=== PATIENT | female | born 1980 | race Two or more races ===

== ENCOUNTER → 2017-05-16 | Outpatient (CLI) | payer BC | END | disposition home or self-care (01) | LOC: LAB 15:07 | PROVIDERS: ATTEND Obstetrics & Gynecology | DX: Z34.80 Encounter for supervision of other normal pregnancy, unspecified trimester (principal); Z3A.00 Weeks of gestation of pregnancy not specified | CPT/HCPCS: 87086 ==

== ENCOUNTER → 2017-06-13 | Outpatient (CLI) | payer BC ==
[2017-06-13 14:53] LABS: Basophils # (auto) 0.1 uL; Eosinophils # (auto) 0.2 uL; Eosinophils % (auto) 1.3 % (0.0-7.0)
[2017-06-13 14:56] LABS: Basophils % (auto) 0.6 % (0.0-2.0); Hematocrit 43.5 % (36.0-46.0); Hemoglobin 14.4 g/dL (12.2-16.2); Lymphocytes # (auto) 3.5 uL; Lymphocytes % (auto) 25.5 % (10.0-50.0); Mean Corpuscular Hemoglobin 29.3 pg (28.0-32.0); Mean Corpuscular Hgb Conc. 33.1 g/dL (32.0-36.0); Mean Corpuscular Volume 88.4 fL (80.0-100.0); Monocytes # (auto) 1.1 uL; Monocytes % (auto) 7.9 % (0.0-12.0); Neutrophils # (auto) 8.8 uL; Neutrophils % (auto) 64.7 % (37.0-80.0); Nucleated Red Blood Cells % 0.1 %; Platelet Count (auto) 258 10^3/uL (140-450); Red Blood Cells 4.92 10^6/uL (4.0-5.20); Red Cell Distribution Width 13.7 % (11.8-14.3); White Blood Cell 13.6 10^3/uL (4.4-10.8)
[2017-06-13 15:43] LABS: Alcohol, Urine < 3.0 mg/dL (0-5); Amphetamine Screen, Urine NEGATIVE (NEGATIVE); Barbiturate Scree,Urine NEGATIVE (NEGATIVE); Benzodiazephine Screen, Urine NEGATIVE (NEGATIVE); Cannabinoid Screen, Urine NEGATIVE (NEGATIVE); Cocaine Screen, Urine NEGATIVE (NEGATIVE); Opiate Scree,Urine NEGATIVE (NEGATIVE); Phencyclidine Screen, Urine NEGATIVE (NEGATIVE)
== END | disposition home or self-care (01) ==
LOC: LAB 14:22
PROVIDERS: ATTEND Obstetrics & Gynecology
DX: Z34.80 Encounter for supervision of other normal pregnancy, unspecified trimester (principal); Z3A.00 Weeks of gestation of pregnancy not specified
CPT/HCPCS: 36415; 80307; 83036; 85025; 86703; 86850; 86900; 86901; 87086; 87340; 87591

== ENCOUNTER → 2017-07-25 | Outpatient (CLI) | payer BC ==
[2017-07-25 15:39] LABS: Basophils # (auto) 0 uL; Basophils % (auto) 0.3 % (0.0-2.0); Eosinophils # (auto) 0.1 uL; Eosinophils % (auto) 0.8 % (0.0-7.0); Hematocrit 41.3 % (36.0-46.0); Hemoglobin 13.5 g/dL (12.2-16.2); Lymphocytes # (auto) 3.4 uL; Lymphocytes % (auto) 23.9 % (10.0-50.0); Mean Corpuscular Hemoglobin 28.6 pg (28.0-32.0); Mean Corpuscular Hgb Conc. 32.8 g/dL (32.0-36.0); Mean Corpuscular Volume 87.3 fL (80.0-100.0); Monocytes # (auto) 1.2 uL; Monocytes % (auto) 8.5 % (0.0-12.0); Neutrophils # (auto) 9.3 uL; Neutrophils % (auto) 66.5 % (37.0-80.0); Platelet Count (auto) 250 10^3/uL (140-450); Red Blood Cells 4.73 10^6/uL (4.0-5.20); Red Cell Distribution Width 13.6 % (11.8-14.3)
[2017-07-25 17:08] LABS: Albumin 3.3 g/dL (3.4-5.0); BUN/Creatinine Ratio 14.8; Bilirubin, Total 0.2 mg/dL (0.2-1.0); Calcium 9.3 mg/dL (8.5-10.1); Potassium 3.4 mmol/L (3.5-5.1); Total Protein 8.1 g/dL (6.4-8.2); Uric Acid 2.7 mg/dL (2.6-6.0)
== END | disposition home or self-care (01) ==
LOC: LAB 14:56
PROVIDERS: ATTEND Obstetrics & Gynecology
DX: O10.913 Unspecified pre-existing hypertension complicating pregnancy, third trimester (principal); Z3A.00 Weeks of gestation of pregnancy not specified
CPT/HCPCS: 36415; 80053; 84550; 85025; 86762

== ENCOUNTER → 2017-07-29 | Outpatient (CLI) | payer BC ==
[2017-07-29 09:58] LABS: Protein, Urine < 5.0 mg/dL (0.0-11.9)
[2017-07-29 10:55] LABS: 24 Hr. Total Protein, Urine 84.99983 mg/24 Hr (<149.1); Urine Total Volume, 24 Hours 1700 mL
== END | disposition home or self-care (01) ==
LOC: LAB 09:13
PROVIDERS: ATTEND Obstetrics & Gynecology
DX: O10.913 Unspecified pre-existing hypertension complicating pregnancy, third trimester (principal); Z3A.00 Weeks of gestation of pregnancy not specified
CPT/HCPCS: 84156

== ENCOUNTER 2024-08-14 06:49 | Day surgery (SDC) | payer OTHER ==
[2024-08-11 10:12] LABS: Urine Bacteria FEW /hpf (None Seen); Urine Blood TRACE /uL (Negative); Urine Budding Yeast OCCASIONAL /hpf (None Seen); Urine Clarity Turbid (Clear); Urine Color Yellow (Yellow); Urine Mucus FEW (None Seen); Urine Protein, UAD 1+ (Negative); Urine Specific Gravity 1.025 (1.001-1.035); Urine Squamous Epithelial Cell FEW /hpf (<5); Urine Urobilinogen Normal (Negative); Urine WBC 118 /HPF (0-5); Urine pH 5.5 (5.0-9.0)
[2024-08-11 10:14] LABS: Partial Thromboplastin Time 26.2 SEC (24.5-34.5); Prothrombin Time 10.6 sec (9.3-11.8)
[2024-08-11 10:15] LABS: Basophils # (auto) 0.1 10 ^3/uL (0-0.2); Basophils % (auto) 0.7 % (0.0-2.0); Eosinophils # (auto) 0.1 10 ^3/uL (0-0.8); Hematocrit 34.9 % (36.0-46.0); Hemoglobin 10.6 g/dL (12.2-16.2); Lymphocytes % (auto) 28.5 % (10.0-50.0); Mean Corpuscular Hemoglobin 18.4 pg (28.0-32.0); Mean Corpuscular Hgb Conc. 30.2 g/dL (32.0-36.0); Monocytes % (auto) 9.1 % (0.0-12.0); Neutrophils # (auto) 6.4 10 ^3/uL (1.6-8.6); Neutrophils % (auto) 60.7 % (37.0-80.0); Nucleated Red Blood Cells % 0.1 %; Platelet Count (auto) 274 10^3/uL (140-450); Red Blood Cells 5.73 10^6/uL (4.0-5.20); White Blood Cell 10.5 10^3/uL (4.4-10.8)
[2024-08-11 10:19] LABS: Red Cell Distribution Width 21.3 % (11.8-14.3)
[2024-08-11 10:30] LABS: Alanine Aminotransferase 13 U/L (7-40); Albumin 5.1 g/dL (3.2-4.8); Alkaline Phosphatase 110 U/L (46-116); Anion Gap 10 (5-15); Aspartate Aminotransferase 16 U/L (<34); BUN/Creatinine Ratio 11.8 (10.0-20.0); Bilirubin, Total 0.5 mg/dL (0.2-1.0); Blood Urea Nitrogen 9 mg/dL (9-23); Calcium 9.9 mg/dL (8.7-10.4); Carbon Dioxide 22 mmol/L (20-31); Chloride 108 mmol/L (98-107); Glucose 108 mg/dL (74-106); Potassium 3.7 mmol/L (3.5-5.1); Sodium 140 mmol/L (136-145); Total Protein 8.3 g/dL (5.7-8.2)
--- NOTE | 2024-08-11 13:34 | DVHHP ---
ADMIT DATE: 08/11/2024 CHIEF COMPLAINT: Abnormal uterine bleeding, menorrhagia. HISTORY OF PRESENT ILLNESS: The patient is a 44-year-old 5, para 5, admitted for D and C, hysteroscopy, endometrial ablation, removal of prolapsing myoma. The patient has a large 5 cm myoma prolapsing through the cervix. She has been having abnormal bleeding. An ultrasound was done in the office, which revealed 10.7 x 8.8 x 5.7 cm uterus. There was a fundal myoma. Cervical myoma appears to be 3.5 cm. The patient is also undergoing endometrial ablation. PAST MEDICAL HISTORY: None. PAST SURGICAL HISTORY: Cholecystectomy. SOCIAL HISTORY: None. OBSTETRIC AND GYNECOLOGIC HISTORY: Five normal vaginal deliveries. REVIEW OF SYSTEMS: Consistent with HPI. PHYSICAL EXAMINATION: VITAL SIGNS: Stable, afebrile. HEENT: Within normal limits. CARDIOVASCULAR: Regular rate and rhythm. LUNGS: Clear to auscultation. BREASTS: Symmetrical. No masses. ABDOMEN: Soft, nontender. PELVIC: External genitalia within normal limits. Vagina normal. Cervix is dilated. A 5 cm myoma noted. Uterus 11 weeks size. Adnexa nonpalpable. EXTREMITIES: No clubbing, cyanosis or edema. IMPRESSION: * Abnormal uterine bleeding, menorrhagia. * Prolapsing myoma. PLAN: D and C, hysteroscopy. Informed consent obtained. Risks and complications of surgery including infection, bleeding, hematoma formation, injury to bowel, bladder, surrounding organ, possibility of DVT, pulmonary embolus, risk of anesthesia discussed with the patient. Risks of this procedure discussed with the patient. Options reviewed. All questions answered. The patient fully understands. She wishes to proceed with planned procedure. DO PASCUAL Joshua TID: [id number] RECEIPT: [id number]
[~2024-08-14] VITALS: Ht 152.4 cm; Wt 80.7 kg
[~2024-08-14 06:49] MED LIST: IBUP100S11 GT; NIC21P TOP
[2024-08-14] MEDS ORDERED: IBUP-1456 PO (07:49)
[2024-08-14] MEDS ORDERED: HYDR-4072 PO (07:49)
[2024-08-14] MEDS ORDERED: ZOFR4T PO (07:49)
[2024-08-14] MEDS ORDERED: ONDANSETRON HCL 4 MG/2 ML VIAL IV PRN (08:00)
[2024-08-14] MEDS ORDERED: LACTATED RINGER'S 1,000 ML IV SCH (08:00)
[2024-08-14] MEDS ORDERED: HYDROmorphone HCL 2 MG/ML VL/or syr IV PRN ×2 (08:15)
[2024-08-14] MEDS ORDERED: MORPHINE SULFATE 4 MG/ML SYR/VIAL IV PRN (08:15)
[2024-08-14] MEDS ORDERED: KETOROLAC TROMETH 30 MG/ML 1ML VIAL IV ONE (08:15)
[2024-08-14] MEDS ORDERED: METOCLOPRAMIDE HCL 5MG/ml INJ 2ml VIAL IV ONE (08:15)
[2024-08-14] MEDS ORDERED: MORPHINE SULFATE INJ 2 MG/ml SYRG IV PRN (08:15)
[2024-08-14 09:50] VITALS: BP 139/78; PULSE 96; RESP 16; O2SAT 97
--- NOTE | 2024-08-14 13:44 | DVHOP2 ---
Operative Report DATE OF OPERATION: 08/14/24 PREOPERATIVE DIAGNOSES: Abnormal uterine bleeding, anemia,prolapsing myoma POSTOPERATIVE DIAGNOSES: same SURGEON: Paco Lerma D.O. ANESTHESIOLOGIST: madeleine TYPE OF ANESTHESIA : MAC. CONSENT: The patient was informed of the risks and benefits of the procedure. The patient was informed of the risks and benefits of the procedure. These include but are not limited to , complications of anesthesia, postoperative infection, incomplete relief of symptoms, recurrence of symptoms, damage to blood vessels, nerves and tendons, deep venous thrombosis, pulmonary embolism and possible need for repeat surgery in the future. FINDINGS: Cervix is normal. Uterus is 9 weeks size. Adnexa is nonpalpable. Hysteroscopy examination revealed no evidence of polyps ,a 5cm prolapsing myoma was removed out of cervix SPECIMEN: EMC,myoma COMPLICATIONS: None BLOOD PRODUCTS USED: None PROCEDURES: Dilation and curettage, hysteroscopy, and endometrial ablation.myomectomy PROCEDURE IN DETAIL: The patient was taken to the operating room, where he was placed under MAC anesthesia. She was then prepped and draped in the usual sterile manner in dorsal lithotomy position. Bladder was emptied using a straight catheter. Examination under anesthesia revealed the above findings. A weighted speculum was placed in the vagina. Anterior lip of the cervix was grasped using single tooth tenaculum. 5 cm moyoma was coming out of cervix.Cervix was already dilated. Uterus was sounded to 9 cm.the myoma was removed using teneculum Hysteroscope was then advanced in to the uterus. Survey of uterine cavity revealed no evidence of polyp or myoma. Hysteroscope was removed. Endometrial carotene was performed. Endometrial ablation procedure was then performed successfully. Post ablation hysteroscopic findings was consistent with excellent ablation of the entire cavity. No bleeding was noted. All the instruments were removed from the vagina and cervix. Patient tolerated procedure well. She was then taken to the recovery room in stable condition. CONDITION: Stable ESTIMATED BLOOD LOSS: 50 mL Visit Coding OBGYN Date of Service: Aug 14, 2024 Billing Provider: PACO LERMA DO DISTRICT SALES MANAGER Common Visit Codes: 59549-[id number] OBS CARE (HIGH) DISTRICT SALES MANAGER Procedure Codes: 21228-[id number], SURGICAL, 29259-[id number], SURG: W/EA PACO LERMA DO Aug 14, 2024 13:44
--- NOTE | 2024-08-14 13:46 | POSTOP ---
Post-Operative Note Post-Operative Note Preop Diagnosis aub,anemia ,prolapsing myoma Postop Diagnosis: same Operation performed d and c,hysteroscopy,endometrial ablation,myomectomy Specimen emc,myomectomy Anesthesia: Mac Anesthesiologist: madeleine Blood Loss(fluid mgmt) 20ml Surgeon Paco Lerma Implant na Complications & Mgmt none Date 08/14/24 Time 13:44 Visit Coding OBGYN Date of Service: Aug 14, 2024 Billing Provider: PACO LERMA DO DEFENSIVE DRIVING INSTRUCTOR Common Visit Codes: [id number] OBS CARE (HIGH) DEFENSIVE DRIVING INSTRUCTOR Procedure Codes: [id number], SURGICAL, 75101-[id number], SURG: W/EA PACO LERMA DO Aug 14, 2024 13:46
--- NOTE | 2024-08-14 13:47 | DVHDS2 ---
Physician Discharge Progress N Final Diagnosis: aub,anemia,prolapsing myoma Operations or Procedures: Operations or Procedures d and c,hysteroscopy,endometrial ablation,myomectomy Condition on Discharge: Good Disposition: Home Discharge Instructions: Diet: Regular Activity: Light activity Follow Up/Referral: w saturday Medications: maricruz echevarria Follow Up Care: Specialist: 1w Discharge Statement: "Patient was advised to return to the ER or call 911 if any headaches, dizziness, shortness of breath, chest pain, abdominal pain, bleeding, fevers, or worsening of medical condition. Patient was counseled about treatment plan, medications, possible side effects, patientverbalized understanding. All questions were answered to the best of my ability. This discharge took greater then 30 minutes in planning, reviewing documentation, counseling the patient, and discussing with other team members." Visit Coding OBGYN Date of Service: Aug 14, 2024 Billing Provider: PACO ENRIQUEZ DO ACID RETORT OPERATOR Common Visit Codes: [id number] OBS CARE (HIGH), 84440-EHC/OBS DISCH DAY >30MIN PACO ENRIQUEZ DO Aug 14, 2024 13:47
== END 2024-08-14 09:52 | disposition home or self-care (01) ==
LOC: SUR 06:49
PROVIDERS: ATTEND Obstetrics & Gynecology
DX: D25.9 Leiomyoma of uterus, unspecified (principal); D64.9 Anemia, unspecified; N92.0 Excessive and frequent menstruation with regular cycle; Z90.49 Acquired absence of other specified parts of digestive tract
CPT/HCPCS: 36415; 58561; 58563; 80053; 81001; 81025; 84702; 85025; 85610; 85730; 86850; 86900; 86901; J2765; J2250; J2405; J2704